=== PATIENT | female | born 1980 | race Caucasian/White ===

== ENCOUNTER 2016-09-01 04:40 | Emergency (ER) | payer BC ==
--- NOTE | 2016-09-01 05:17 | EDM.PDOC ---
<Miguelito Bernal - Last Filed: 09/01/16 06:37> ED HPI GENERAL MEDICAL PROBLEM - General Chief Complaint: Abdominal Pain Stated Complaint: LOWER RIGHT ABDOMINAL PAIN Time Seen by Provider: 09/01/16 05:08 Source of Information: Reports: Patient, RN - History of Present Illness INITIAL COMMENTS - FREE TEXT/NARRATIVE: she presents with about a 24 hour history of RLQ pain. She thinks that it feels similar to when she had diverticulitis. Nausea no vomiting no fever no BM changes no bleeding RLQ Pain Score (Numeric/FACES): 8 Past Medical History Cardiovascular History: Denies: Afib, Aneurysm, Angina, CAD, Cardiomyopathy, Heart Failure, Hypertension, [place] Respiratory History: Denies: COPD Gastrointestinal History: Denies: Cirrhosis Neurological History: Denies: CVA Endocrine/Metabolic History: Denies: Diabetes, Type I, Diabetes, Type II - Past Surgical History GI Surgical History: Reports: Appendectomy, Other (See Below) (bariatric surgery ) Female Surgical History: Reports: Oophorectomy (right oophorectomy) Social & Family History - Tobacco Use Tobacco Use Comment: non smoker - Alcohol Use Alcohol Use Comment: denies alcohol use ED ROS GENERAL - Review of Systems Review Of Systems: See Below Constitutional: Denies: Fever, Chills Respiratory: Denies: Shortness of Breath, Cough, Sputum Cardiovascular: Denies: Chest Pain GI/Abdominal: Reports: Abdominal Pain, Nausea. Denies: Bloody Stool, Difficulty Swallowing, Hematemesis, Hematochezia, Vomiting : Denies: Dysuria Neurological: Denies: Confusion ED EXAM, GI/ABD - Physical Exam Exam: See Below General Appearance: Alert. No: Mild Distress Throat/Mouth: Normal Lips Neck: Supple Respiratory/Chest: No Respiratory Distress GI/Abdominal Exam: Soft, Other (mild right lower quadrant tenderness; no rebound tenderness; normal to increased bowel sounds) Course - Vital Signs Last Recorded V/S: Last Vital Signs Temp 36.6 C 09/01/16 06:52 Pulse 68 09/01/16 06:52 Resp 18 09/01/16 06:52 BP 119/60 09/01/16 06:52 Pulse Ox 98 09/01/16 06:52 - Orders/Labs/Meds Orders: Active Orders 24 hr Category Date Time Status Abdomen Pelvis w wo Cont [CT] Stat Exams 09/01/16 06:56 Taken Nalbuphine [Nubain] Med 09/01/16 06:39 Active 10 mg IVPUSH Q2H PRN Ondansetron [Zofran] Med 09/01/16 06:39 Active 4 mg IVPUSH Q4H PRN Medication Orders Nalbuphine HCl (Nubain) 10 mg IVPUSH Q2H PRN PRN Reason: Pain Last Admin: 09/01/16 06:55 Dose: 10 mg Ondansetron HCl (Zofran) 4 mg IVPUSH Q4H PRN PRN Reason: Nausea Last Admin: 09/01/16 06:53 Dose: 4 mg Labs: Laboratory Tests 09/01/16 09/01/16 09/01/16 Range/Units 05:05 05:05 05:26 WBC 9.49 (4.0-11.0) K/uL RBC 4.24 L (4.30-5.90) M/uL Hgb 9.1 L (12.0-16.0) g/dL Hct 30.1 L (36.0-46.0) % MCV 71.0 L (80.0-98.0) fL MCH 21.5 L (27.0-32.0) pg MCHC 30.2 L (31.0-37.0) g/dL RDW Std Deviation 48.3 (28.0-62.0) fl RDW Coeff of Silverio 19 H (11.0-15.0) % Plt Count 403 H (150-400) K/uL MPV 9.80 (7.40-12.00) fL Neut % (Auto) 63.6 (48.0-80.0) % Lymph % (Auto) 28.2 (16.0-40.0) % [place] % (Auto) 7.3 (0.0-15.0) % Eos % (Auto) 0.7 (0.0-7.0) % Baso % (Auto) 0.2 (0.0-1.5) % Neut # (Auto) 6.0 H (1.4-5.7) K/uL Lymph # (Auto) 2.7 H (0.6-2.4) K/uL [place] # (Auto) 0.7 (0.0-0.8) K/uL Eos # (Auto) 0.1 (0.0-0.7) K/uL Baso # (Auto) 0.0 (0.0-0.1) K/uL Nucleated RBC % 0.0 /100WBC Nucleated RBCs # 0 K/uL Sodium (136-146) mmol/L Potassium (3.5-5.1) mmol/L Chloride (98-110) mmol/L Carbon Dioxide (21-31) mmol/L BUN (6.0-23.0) mg/dL Creatinine (0.6-1.5) mg/dL Est Cr Clr Drug Dosing mL/min Estimated GFR (MDRD) ml/min Glucose (60-110) mg/dL Calcium (8.8-10.8) mg/dL Total Bilirubin (0.1-1.5) mg/dL AST (5-40) IU/L ALT (8-54) IU/L Alkaline Phosphatase (40-150) Total Protein (6.0-8.0) g/dL Albumin (3.5-5.0) g/dL Globulin (2.0-3.5) g/dL Albumin/Globulin Ratio (1.3-2.8) Urine Color YELLOW Urine Appearance CLEAR Urine pH 7.0 (5.0-8.0) Ur Specific [employer] 1.025 (1.001-1.035) Urine Protein NEGATIVE (NEGATIVE) mg/dL Urine Glucose (UA) NEGATIVE (NEGATIVE) mg/dL Urine Ketones >=80 (NEGATIVE) mg/dL Urine Occult Blood NEGATIVE (NEGATIVE) Urine Nitrite NEGATIVE (NEGATIVE) Urine Bilirubin NEGATIVE (NEGATIVE) Urine Urobilinogen 0.2 (<2.0) EU/dL Ur Leukocyte Esterase NEGATIVE (NEGATIVE) Urine RBC 0-1 (0-2/HPF) Urine WBC 0-3 (0-5/HPF) Ur Epithelial Cells RARE (NONE-FEW) Urine Bacteria RARE (NEGATIVE) Urine HCG, Qual NEGATIVE (NEGATIVE) 09/01/16 Range/Units 05:26 WBC (4.0-11.0) K/uL RBC (4.30-5.90) M/uL Hgb (12.0-16.0) g/dL Hct (36.0-46.0) % MCV (80.0-98.0) fL MCH (27.0-32.0) pg MCHC (31.0-37.0) g/dL RDW Std Deviation (28.0-62.0) fl RDW Coeff of Silverio (11.0-15.0) % Plt Count (150-400) K/uL MPV (7.40-12.00) fL Neut % (Auto) (48.0-80.0) % Lymph % (Auto) (16.0-40.0) % [place] % (Auto) (0.0-15.0) % Eos % (Auto) (0.0-7.0) % Baso % (Auto) (0.0-1.5) % Neut # (Auto) (1.4-5.7) K/uL Lymph # (Auto) (0.6-2.4) K/uL [place] # (Auto) (0.0-0.8) K/uL Eos # (Auto) (0.0-0.7) K/uL Baso # (Auto) (0.0-0.1) K/uL Nucleated RBC % /100WBC Nucleated RBCs # K/uL Sodium 141 (136-146) mmol/L Potassium 3.9 (3.5-5.1) mmol/L Chloride 108 (98-110) mmol/L Carbon Dioxide 25 (21-31) mmol/L BUN 12 (6.0-23.0) mg/dL Creatinine 0.7 (0.6-1.5) mg/dL Est Cr Clr Drug Dosing 91.91 mL/min Estimated GFR (MDRD) > 60.0 ml/min Glucose 94 (60-110) mg/dL Calcium 9.1 (8.8-10.8) mg/dL Total Bilirubin 0.5 (0.1-1.5) mg/dL AST 17 (5-40) IU/L ALT 11 (8-54) IU/L Alkaline Phosphatase 64 (40-150) Total Protein 7.9 (6.0-8.0) g/dL Albumin 3.9 (3.5-5.0) g/dL Globulin 4.0 H (2.0-3.5) g/dL Albumin/Globulin Ratio 1.0 L (1.3-2.8) Urine Color Urine Appearance Urine pH (5.0-8.0) Ur Specific [employer] (1.001-1.035) Urine Protein (NEGATIVE) mg/dL Urine Glucose (UA) (NEGATIVE) mg/dL Urine Ketones (NEGATIVE) mg/dL Urine Occult Blood (NEGATIVE) Urine Nitrite (NEGATIVE) Urine Bilirubin (NEGATIVE) Urine Urobilinogen (<2.0) EU/dL Ur Leukocyte Esterase (NEGATIVE) Urine RBC (0-2/HPF) Urine WBC (0-5/HPF) Ur Epithelial Cells (NONE-FEW) Urine Bacteria (NEGATIVE) Urine HCG, Qual (NEGATIVE) Meds: Medications Generic Name Dose Route Start Last Admin Trade Name Freq PRN Reason Stop Dose Admin Nalbuphine HCl 10 mg 09/01/16 06:39 09/01/16 06:55 Nubain IVPUSH 10 mg Q2H PRN Administration Pain Ondansetron HCl 4 mg 09/01/16 06:39 09/01/16 06:53 Zofran IVPUSH 4 mg Q4H PRN Administration Nausea Discontinued Medications Generic Name Dose Route Start Last Admin Trade Name Freq PRN Reason Stop Dose Admin Iopamidol 100 ml 09/01/16 07:29 09/01/16 07:29 Isovue Multipack-370 (76%) IVPUSH 09/01/16 07:30 100 ml ONETIME STA Administration - Re-Assessments/Exams Free Text/Narrative Re-Assessment/Exam: 09/01/16 06:37 I discussed laboratory findings with her. She is insistent on CT scanning as she is worried about something more serious. We discussed the radiation exposure and I will order CT abdomen and pelvis. Departure - Departure Disposition: Home, Self-Care 01 Clinical Impression: Left ovarian cyst Uterine fibroid Qualifiers: Uterine leiomyoma location: unspecified location Qualified Code(s): D25.9 - Leiomyoma of uterus, unspecified - Discharge Information Forms: ED Department Discharge Additional Instructions: The following information is given to patients seen in the emergency department who are being discharged to home. This information is to outline your options for follow-up care. We provide all patients seen in our emergency department with a follow-up referral. The need for follow-up, as well as the timing and circumstances, are variable depending upon the specifics of your emergency department visit. If you don't have a primary care physician on staff, we will provide you with a referral. We always advise you to contact your personal physician following an emergency department visit to inform them of the circumstance of the visit and for follow-up with them and/or the need for any referrals to a consulting specialist. The emergency department will also refer you to a specialist when appropriate. This referral assures that you have the opportunity for follow-up care with a specialist. All of these measure are taken in an effort to provide you with optimal care, which includes your follow-up. Under all circumstances we always encourage you to contact your private physician who remains a resource for coordinating your care. When calling for follow-up care, please make the office aware that this follow-up is from your recent emergency room visit. If for any reason you are refused follow-up, please contact the [facility] Emergency Department at and asked to speak to the emergency department charge nurse. Follow-up women's health clinic [facility] Primary Care - Women's Health [address] [place] [address] <Sil Cordero - Last Filed: 09/01/16 08:28> ED HPI GENERAL MEDICAL PROBLEM - History of Present Illness INITIAL COMMENTS - FREE TEXT/NARRATIVE: patient was signed out to me by Dr. BERNAL presenting with right lower quadrant pain. She has had bariatric surgery and a right oophorectomy. She has a known history of a left ovarian cyst that is 4.5 cm and a uterine fibroid. There are no signs of diverticulitis, bowel obstruction or colitis on CT of her abdomen. Being discharged stable with instructions to follow up with [facility]. Departure - Departure Time of Disposition: 08:26 Condition: Good
[2016-09-01 06:02] LABS: CHLORIDE,CL 108 mmol/L (98-110); SODIUM,NA 141 mmol/L (136-146)
[2016-09-01] MEDS ORDERED: Nalbuphine 10 MG/1 ML Vial IVPUSH PRN (06:39)
[2016-09-01] MEDS ORDERED: Ondansetron 4 MG/2 ML SDV IVPUSH PRN (06:39)
[2016-09-01 06:53] VITALS: BP 119/60
[2016-09-01] MEDS ORDERED: Iopamidol 755 MG/ML 500 ML Multipack Bottle IVPUSH STA (07:29)
--- NOTE | 2016-09-01 11:57 | CT ---
EXAM DATE: 09/01/16 PATIENT'S AGE: 35 Patient: CAREN DILLARD Facility: [place], [place] Site . Site : 1980 Study: CT Abdomen/Pelvis [id number]/19/2017 7:32:47 AM Ordering Physician: Antonella Farley Final Report: INDICATION: 35 year-old female. Right lower quadrant abdominal pain. Right oophorectomy. Previous cholecystectomy and appendectomy. TECHNIQUE: Noncontrast/contrast-enhanced CT of the abdomen and pelvis. 100 cc nonionic Isovue-370 administered without complication. Comparison : None. FINDINGS: Pre contrast CT demonstrates clear lung bases. The unenhanced liver, spleen, pancreas, and both adrenal glands are normal. Surgically absent gallbladder. Postsurgical change in the region of the stomach. 2 mm nonobstructing stone upper central left kidney. Normal caliber abdominal aorta and iliac arteries without vascular calcification. Surgically absent appendix and right ovary. The left ovary is enlarged likely secondary to a cyst which measures up to 4.5 x 2.8 cm on image 110 series 301. Additionally there is a mass occupying the uterine fundus and body likely a fibroid. It measures approximately 7.8 x 7.4 cm. Consider pelvic ultrasound for further characterization. No ascites or lymphadenopathy. No bowel obstruction or ileus. The included skeleton is negative for fractures. IMPRESSION: 1. Large uterine mass likely a fibroid. 2. 4.5 cm left ovarian cyst. 3. Nonobstructing 2 mm stone upper mid left kidney. 4. Surgical changes related to appendectomy, cholecystectomy, right oophorectomy , and postsurgical change in the region of the stomach. 5. No acute inflammatory process identified within the abdomen or pelvis. Dictated by James Tong MD @ 09/01/2016 8:17:08 AM Dictated by: James Tong MD @ 09/01/2016 08:18:08 (Electronic Signature) Report Signed by Proxy. JL
== END 2016-09-01 08:37 | disposition home or self-care (01) ==
LOC: MW.ED 04:40
DX: N83.202 Unspecified ovarian cyst, left side (principal); D25.9 Leiomyoma of uterus, unspecified; Z90.49 Acquired absence of other specified parts of digestive tract; Z98.84 Bariatric surgery status; Z90.721 Acquired absence of ovaries, unilateral
CPT/HCPCS: 36415; 74178; 80053; 81001; 81025; 85025; 96374; 96375; 99284; J2300; J2405; Q9967

== ENCOUNTER 2018-05-24 06:59 | Emergency (ER) | payer BC ==
--- NOTE | 2018-05-24 07:15 | EDM.PDOC ---
ED HPI GENERAL MEDICAL PROBLEM - General Chief Complaint: General Stated Complaint: POSSIBLE INFECTION Time Seen by Provider: 05/24/18 07:02 Source of Information: Reports: Patient History Limitations: Reports: No Limitations - History of Present Illness INITIAL COMMENTS - FREE TEXT/NARRATIVE: History of present illness: []Patient hasn't been feeling right with vaginal discharge for 2 weeks and this morning she passed a tampon into the toilet. Her last menstrual period was 2 weeks ago. Patient states she has an appointment tomorrow with her primary doctor. He has not taken any meds this morning and she is afebrile. Denies any nausea and vomiting or abdominal pain at this time. Review of systems: As per history of present illness and below otherwise all systems reviewed and negative. Past medical history: As per history of present illness and as reviewed below otherwise noncontributory. Surgical history: As per history of present illness and as reviewed below otherwise noncontributory. Social history: No reported history of drug or alcohol abuse. Family history: As per history of present illness and as reviewed below otherwise noncontributory. Physical exam: General: Well developed, well nourished in NAD HEENT: Atraumatic, normocephalic, pupils reactive, negative for conjunctival pallor or scleral icterus, mucous membranes moist, throat clear, neck supple, nontender, trachea midline. Lungs: Clear to auscultation, breath sounds equal bilaterally, chest nontender. Heart: S1S2, regular, negative for clicks, rubs, or JVD. Abdomen: NABS, Soft, nondistended, nontender, no rebound or guarding. Negative for masses or hepatosplenomegaly. Negative for costovertebral tenderness. Pelvis: Stable nontender. Genitourinary: Deferred. Rectal: Deferred. Extremities: Atraumatic, negative for cords or calf pain. Neurovascular unremarkable. Neuro: Awake, alert, oriented. Cranial nerves II through XII unremarkable. Cerebellum unremarkable. Motor and sensory unremarkable throughout. Exam nonfocal. Skin:warm and dry Diagnostics: None Therapeutics: None ED Course: Stable Impression: Retained tampon Prescriptions: None Plan: Follow-up with primary care as scheduled return if symptoms worsen or change. Definitive disposition and diagnosis as appropriate pending reevaluation and review of above. 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: None Musculoskeletal History: Reports: Other (See Below) Other Musculoskeletal History: fracture finger & toe Psychiatric History: Reports: ADD Hematologic History: Reports: None Immunologic History: Reports: None Oncologic (Cancer) History: Reports: None Dermatologic History: Reports: None - Infectious Disease History Infectious Disease History: Reports: None - Past Surgical History GI Surgical History: Reports: Appendectomy, Other (See Below) (bariatric surgery ) Female Surgical History: Reports: Oophorectomy (right oophorectomy) Social & Family History - Family History Family Medical History: Noncontributory - Caffeine Use Caffeine Use: Reports: Coffee ED ROS GENERAL - Review of Systems Review Of Systems: ROS reveals no pertinent complaints other than HPI. ED EXAM, GENERAL - Physical Exam Exam: See Below (See history of present illness) Course - Vital Signs Last Recorded V/S: Last Vital Signs Temp 96.8 F 05/24/18 07:14 Pulse 95 05/24/18 07:14 Resp 18 05/24/18 07:14 BP 136/86 05/24/18 07:14 Pulse Ox 96 05/24/18 07:14 Departure - Departure Time of Disposition: 07:32 Disposition: Home, Self-Care 01 Condition: Good Clinical Impression: Encounter for medical screening examination - Discharge Information *PRESCRIPTION DRUG MONITORING PROGRAM REVIEWED*: No *COPY OF PRESCRIPTION DRUG MONITORING REPORT IN PATIENT COLBY: No Referrals: PCP,None [Primary Care Provider] - Forms: ED Department Discharge Additional Instructions: The following information is given to patients seen in the emergency department who are being discharged to home. This information is to outline your options for follow-up care. We provide all patients seen in our emergency department with a follow-up referral. The need for follow-up, as well as the timing and circumstances, are variable depending upon the specifics of your emergency department visit. If you don't have a primary care physician on staff, we will provide you with a referral. We always advise you to contact your personal physician following an emergency department visit to inform them of the circumstance of the visit and for follow-up with them and/or the need for any referrals to a consulting specialist. The emergency department will also refer you to a specialist when appropriate. This referral assures that you have the opportunity for follow-up care with a specialist. All of these measure are taken in an effort to provide you with optimal care, which includes your follow-up. Under all circumstances we always encourage you to contact your private physician who remains a resource for coordinating your care. When calling for follow-up care, please make the office aware that this follow-up is from your recent emergency room visit. If for any reason you are refused follow-up, please contact the [facility] Emergency Department at and asked to speak to the emergency department charge nurse. [facility] Primary [facility] - Women's Health [address] [place] [id number]
[2018-05-24 07:56] VITALS: BP 118/79
== END 2018-05-24 07:52 | disposition home or self-care (01) ==
LOC: MW.ED 06:59
DX: Z13.89 Encounter for screening for other disorder (principal)
CPT/HCPCS: 99283

== ENCOUNTER 2019-03-12 06:46 | Inpatient (IN) | payer BC ==
[2019-03-12] MEDS ORDERED: Dexamethasone 4 MG/ML 5 ML MDV ONE (07:20)
[2019-03-12] MEDS ORDERED: Propofol 200 MG/20 ML SDV ONE (07:20)
[2019-03-12] MEDS ORDERED: Lidocaine 2% 5 ML SDV ONE (07:20)
[2019-03-12] MEDS ORDERED: Ondansetron 4 MG/2 ML SDV ONE (07:20)
[2019-03-12] MEDS ORDERED: fentaNYL 100 MCG/2 ML SDV ONE (07:20)
[2019-03-12] MEDS ORDERED: Midazolam 1 MG/ML 2 ML SDV ONE (07:20)
[2019-03-12] MEDS ORDERED: Rocuronium 100 MG/10 ML Syringe ONE (07:20)
[2019-03-12] MEDS ORDERED: Octyl 2-Cyanoacrylate 1 Tube ONE (07:23)
[2019-03-12] MEDS ORDERED: Fluorescein 5 ML Vial ONE (07:26)
[2019-03-12 07:41] LABS: BLOOD UREA NITROGEN,BUN 15 mg/dL (7.0-18.0); CARBON DIOXIDE,CO2 27.2 mmol/L (21.0-32.0); CHLORIDE,CL 107 mmol/L (98-107); GLUCOSE RANDOM 99 mg/dL (74-106); POTASSIUM,K 3.8 mmol/L (3.5-5.1); SODIUM,NA 143 mmol/L (136-145)
[2019-03-12] MEDS ORDERED: Scopolamine 1.5 MG Transdermal Patch TRDERM PRN (07:43)
--- NOTE | 2019-03-12 07:43 | PCM.PREANE ---
Preanesthetic Assessment - Anesthesia/Transfusion/Family Hx Anesthesia History: Prior Anesthesia Without Reaction Family History of Anesthesia Reaction: No Transfusion History: No Prior Transfusion(s) - Review of Systems General: No Symptoms Pulmonary: No Symptoms Cardiovascular: No Symptoms Gastrointestinal: No Symptoms Neurological: No Symptoms Other: Reports: None - Physical Assessment Vital Signs: Last Vital Signs Temp 96.4 F 03/12/19 07:05 Pulse 85 03/12/19 07:05 Resp 16 03/12/19 07:05 BP 143/85 H 03/12/19 07:05 Pulse Ox 99 03/12/19 07:05 Height: 5 ft 3 in Weight: 104.326 kg ASA Class: 2 Mental Status: Alert & Oriented x3 Airway Class: Mallampati = 1 Dentition: Reports: Normal Dentition ROM/Head Extension: Full Lungs: Clear to Auscultation, Normal Respiratory Effort Cardiovascular: Regular Rate, Regular Rhythm - Lab Values: Laboratory Last Values WBC 8.58 K/uL (4.0-11.0) 03/12/19 07:12 RBC 3.54 M/uL (4.30-5.90) L 03/12/19 07:12 Hgb 9.5 g/dL (12.0-16.0) L 03/12/19 07:12 Hct 30.5 % (36.0-46.0) L 03/12/19 07:12 MCV 86.2 fL (80.0-98.0) 03/12/19 07:12 MCH 26.8 pg (27.0-32.0) L 03/12/19 07:12 MCHC 31.1 g/dL (31.0-37.0) 03/12/19 07:12 RDW Std Deviation 70.2 fl (28.0-62.0) H 03/12/19 07:12 RDW Coeff of Silverio 23 % (11.0-15.0) H 03/12/19 07:12 Plt Count 459 K/uL (150-400) H 03/12/19 07:12 MPV 9.10 fL (7.40-12.00) 03/12/19 07:12 Nucleated RBC % 0.0 /100WBC 03/12/19 07:12 Nucleated RBCs # 0 K/uL 03/12/19 07:12 - Allergies Allergies/Adverse Reactions: Allergies Allergy/AdvReac Type Severity Reaction Status Date / Time amoxicillin Allergy Other Verified 03/07/19 12:48 - Blood Blood Available: No - Anesthesia Plan Pre-Op Medication Ordered: None - Acknowledgements Anesthesia Type Planned: General Anesthesia Pt an Appropriate Candidate for the Planned Anesthesia: Yes Alternatives and Risks of Anesthesia Discussed w Pt/Guardian: Yes Pt/Guardian Understands and Agrees with Anesthesia Plan: Yes Additional Comments: PMH: MO, ADHD, using topamax for weight loss PLAN: tiva PreAnesthesia Questionnaire HEENT History: Reports: Other (See Below) Other HEENT History: wears a plastic retainer at night Respiratory History: Reports: Sleep Apnea Other Respiratory History: hx of sleep apnea, used a CPAP until weight reduction surgery Gastrointestinal History: Reports: Cholelithiasis, GERD Genitourinary History: Reports: None PLANT ETIOLOGIST History: Reports: None Musculoskeletal History: Reports: Fracture Other Musculoskeletal History: hx of fx left ring finger Psychiatric History: Reports: ADHD Endocrine/Metabolic History: Reports: Obesity/BMI 30+ Hematologic History: Reports: Anemia Other Hematologic History: Iron deficiency anemia- has iron infusions Immunologic History: Reports: None Oncologic (Cancer) History: Reports: None Dermatologic History: Reports: None - Infectious Disease History Infectious Disease History: Reports: None - Past Surgical History Head Surgeries/Procedures: Reports: None HEENT Surgical History: Reports: Oral Surgery, Tonsillectomy Other HEENT Surgeries/Procedures: 1 wisdom tooth removed GI Surgical History: Reports: Appendectomy, Bariatric Procedure, Cholecystectomy Other GI Surgeries/Procedures: hx of gastric sleeve Female Surgical History: Reports: LEEP, Salpingo-Oophorectomy - SUBSTANCE USE Smoking Status *Q: Former Smoker Tobacco Use Within Last Twelve Months: Cigarettes Recreational Drug Use History: No - HOME MEDS Home Medications: Home Meds Amphetamine/Dextroamphetamine [Adderall XR] 30 mg PO QAM 05/24/18 [History] Pantoprazole Sodium [Protonix] 40 mg PO QAM 05/24/18 [History] Topiramate [Topamax] 50 mg PO QAM 03/07/19 [History] Zolpidem Tartrate [Ambien] 5 mg PO BEDTIME PRN 03/07/19 [History] - CURRENT (IN HOUSE) MEDS Current Meds: Current Medications Lactated Ringer's (Ringers, Lactated) 1,000 mls @ 100 mls/hr IV ASDIRECTED AARON Discontinued Medications Dexamethasone (Dexamethasone) Confirm Administered Dose 20 mg .ROUTE .STK-MED ONE Stop: 03/12/19 07:21 Fentanyl (Sublimaze) Confirm Administered Dose 100 mcg .ROUTE .STK-MED ONE Stop: 03/12/19 07:21 Fluorescein Sodium (Ak-Fluor) Confirm Administered Dose 5 ml .ROUTE .STK-MED ONE Stop: 03/12/19 07:27 Acetaminophen (Ofirmev) Confirm Administered Dose 100 mls @ as directed .ROUTE .STK-MED ONE Stop: 03/12/19 07:24 Lidocaine (Xylocaine-Mpf 2%) Confirm Administered Dose 5 ml .ROUTE .STK-MED ONE Stop: 03/12/19 07:21 Midazolam HCl (Versed 1 Mg/Ml) Confirm Administered Dose 2 mg .ROUTE .STK-MED ONE Stop: 03/12/19 07:21 Octyl Cyanoacrylate (Dermabond Advance) Confirm Administered Dose 1 applic .ROUTE .STK-MED ONE Stop: 03/12/19 07:24 Ondansetron HCl (Zofran) Confirm Administered Dose 4 mg .ROUTE .STK-MED ONE Stop: 03/12/19 07:21 Propofol (Diprivan 20 Ml) Confirm Administered Dose 200 mg .ROUTE .STK-MED ONE Stop: 03/12/19 07:21 Rocuronium [place] (Zemuron) Confirm Administered Dose 100 mg .ROUTE .STK-MED ONE Stop: 03/12/19 07:21 Succinylcholine Chloride (Succinylcholine Chloride) Confirm Administered Dose 200 mg .ROUTE .STK-MED ONE Stop: 03/12/19 07:21
[2019-03-12] MEDS ORDERED: Scopolamine 1.5 MG Transdermal Patch ONE (07:44)
[2019-03-12] MEDS ORDERED: ceFAZolin/Dextrose,Iso-Osmotic 2 GM/50 ML Duplex Bag IV ONE (07:53)
[2019-03-12] MEDS: Lactated Ringers 1,000 ML IV SCH ×2 (07:53→14:27)
[2019-03-12] MEDS ORDERED: HYDROmorphone 2 MG/ML Syringe ONE (08:18)
[2019-03-12] MEDS ORDERED: Methylene Blue 50 MG/10 ML Ampule ONE ×2 (09:32→10:02)
[2019-03-12] MEDS ORDERED: Naloxone 0.4 MG/ML Syringe IVPUSH PRN ×2 (10:08→11:28)
[2019-03-12] MEDS ORDERED: 50% Dextrose in Water 50 ML Syringe IVPUSH PRN (10:08)
[2019-03-12] MEDS ORDERED: Atropine 0.1 MG/ML 10 ML Syringe IVPUSH PRN ×2 (10:08)
[2019-03-12] MEDS ORDERED: EPINEPHrine 1:10,000 1 MG/10 ML Syringe IVPUSH PRN (10:08)
[2019-03-12] MEDS ORDERED: Glycopyrrolate 0.2 MG/ML SDV ONE (10:35)
[2019-03-12] MEDS ORDERED: Neostigmine Methylsulfate 1 MG/ML 5 ML Syringe ONE (10:35)
[2019-03-12] MEDS ORDERED: Bupivacaine 0.5% 30 ML SDV ONE (10:36)
[2019-03-12] MEDS ORDERED: Ketorolac 30 MG/ML SDV ONE (10:37)
[2019-03-12] MEDS ORDERED: Furosemide 40 MG/4 ML VIAL ONE (10:50)
[2019-03-12] MEDS ORDERED: Promethazine 25 MG/ML SDV IM PRN (11:21)
[2019-03-12] MEDS ORDERED: Ondansetron 4 MG/2 ML SDV IVPUSH PRN (11:21)
[2019-03-12] MEDS ORDERED: Ketorolac 30 MG/ML SDV IVPUSH ONE (11:21)
[2019-03-12] MEDS ORDERED: HYDROmorphone/Normal Saline 6 MG/30 ML PCA Vial IV PRN (11:28)
[2019-03-12] MEDS ORDERED: diphenhydrAMINE 25 MG Cap PO PRN (11:28)
[2019-03-12] MEDS ORDERED: diphenhydrAMINE 50 MG/ML SDV IVPUSH PRN (11:28)
[2019-03-12] MEDS: HYDROmorphone 2 MG/ML Syringe IVPUSH PRN ×2 (11:29→11:37)
[2019-03-12] MEDS ORDERED: Acetaminophen 325 MG Tab PO SCH (11:30)
--- NOTE | 2019-03-12 11:34 | PCM.OPNOTE ---
- General Post-Op/Procedure Note Date of Surgery/Procedure: 03/12/19 Operative Procedure(s): Total abdominal hysterectomy, left salpingectomy, cystourethroscopy Findings: Enlarged 20-week size uterus, absent right ovary and tube, normal-appearing left ovary and tube Normal bladder with bilateral ureteral efflux Pre Op Diagnosis: 38yo G0 with leiomyoma of uterus. Heavy menstruation. Dysmenorrhea Post-Op Diagnosis: 38yo G0 with leiomyoma of uterus. Heavy menstruation. Dysmenorrhea Anesthesia Technique: General ET Tube Primary Surgeon: Maeve Katz Anesthesia Provider: Jeannie Mclaughlin Orthopedic Tech: Sobeida Cleveland Pathology: Uterus, cervix, left fallopian tube Fluid Replacement, Intraop: 2,100 Output, Urine Amount: 500 EBL in mLs: 700 Drain/Tube Comments:: GOOD wound vac Complications: None Condition: Good
[2019-03-12] MEDS ORDERED: HYDROmorphone 2 MG/ML Syringe IVPUSH ONE (11:38)
--- NOTE | 2019-03-12 11:42 | PCM.POSTAN ---
POST ANESTHESIA ASSESSMENT - MENTAL STATUS Mental Status: Alert, Oriented - VITAL SIGNS Vital Signs: Last Vital Signs Temp 97.5 F 03/12/19 11:13 Pulse 81 03/12/19 11:23 Resp 16 03/12/19 11:23 BP 147/80 H 03/12/19 11:23 Pulse Ox 100 03/12/19 11:23 - RESPIRATORY Respiratory Status: Respiratory Rate WNL, Airway Patent, O2 Saturation Stable - CARDIOVASCULAR CV Status: Pulse Rate WNL, Blood Pressure Stable - GASTROINTESTINAL GI Status: No Symptoms - POST OP HYDRATION Hydration Status: Adequate & Stable
[2019-03-12] MEDS ORDERED: HYDROmorphone 2 MG/ML Syringe IVPUSH PRN (12:07)
--- NOTE | 2019-03-12 16:32 | OR ---
SURGEON: Maeve Katz MD DATE OF PROCEDURE: 03/12/2019 PREOPERATIVE DIAGNOSES: 1. A 38-year-old G0 with uterine leiomyoma. 2. Heavy menstruation. 3. Dysmenorrhea. POSTOPERATIVE DIAGNOSES: 1. A 38-year-old G0 with uterine leiomyoma. 2. Heavy menstruation. 3. Dysmenorrhea. PROCEDURE: Total abdominal hysterectomy, left salpingectomy, and cystoscopy. PRIMARY SURGEON: Maeve Katz MD PRESCHOOL TEACHER ASSISTANT: Dr. Sobeida Cleveland. ANESTHESIA: General endotracheal provided by Dr. Mclaughlin. COMPLICATIONS: None. ESTIMATED BLOOD LOSS: 700 mL. FLUIDS: 2100 mL LR. URINE OUTPUT: 500 mL. SPECIMEN: Uterus, cervix, and left fallopian tube. FINDINGS: A 20-week size uterus. Normal-appearing left ovary and tube. Absent right ovary and tube consistent with surgical history. Normal bladder with bilateral ureteral efflux. PROCEDURE IN DETAIL: The risks, benefits, indications, and alternatives of the procedure were reviewed with the patient and informed consent was obtained. The patient was taken to the operating room with IV fluids running. The patient was placed in the dorsal lithotomy position with legs in Yellofin stirrups. General anesthesia was obtained. A Hanson catheter was placed and she was prepared and draped in the usual sterile fashion. A 12 cm infraumbilical vertical skin incision was made with the scalpel and carried through to the underlying rectus fascia with the Bovie. The fascia was incised in the midline with the Bovie, and the incision was extended superiorly and inferiorly using elevation with a hemostat to ensure that the underlying bowel was not injured. The fascia was from the rectus muscles with a combination of blunt dissection and sharp dissection with the Metzenbaum scissors. The peritoneum was grasped with 2 hemostats, elevated, and entered sharply with Metzenbaum scissors. A large Dane retractor was placed and the bowel packed away with moist laparotomy sponges. The pelvis was examined with the above findings noted. The LigaSure was used to clamp, coagulate, and transect the left fallopian tube from the mesosalpinx and ovary. A large Margaret clamp was placed on the left cornu and used for retraction. The left round ligament was clamped, transected, and suture ligated with 2-0 Vicryl. The anterior leaf of the broad ligament was incised along the bladder reflection to the midline using Metzenbaum scissors. The posterior leaf of the broad ligament was incised with Metzenbaum scissors to skeletonize the uterine vessels. The left uterine vessels were clamped with the LigaSure and coagulated. Forest clamps were then placed and the uterine arteries were transected and suture ligated with 2-0 Vicryl suture. Hemostasis was noted. In a similar fashion, the right round ligament was clamped, transected, and suture ligated with 2-0 Vicryl. The anterior leaf of the broad ligament was incised along the bladder reflection to the midline. The bladder was then gently dissected off the lower uterine segment and the cervix using the Metzenbaum scissors. The right uterine artery was skeletonized and clamped and coagulated with the LigaSure device. The uterine arteries were then clamped with Jes clamp, transected, transected, and suture ligated with 2-0 Vicryl sutures. The bladder was backfilled with 100 mL of sterile saline mixed with methylene blue and no efflux of dye was noted into the pelvis. The bilateral cardinal ligaments were sequentially clamped with Forest clamps, transected, and suture ligated with 2-0 Vicryl until the distal end of the cervix was reached. The cervix and uterus were amputated with the Bovie. At this time, methylene blue was noted to be welling up from the vagina. This was suctioned and additional sterile saline with methylene blue was backfilled into the bladder. No leakage was noted at the edges of the vaginal cuff or bladder, however, was again seen pooling in the vagina. At this time, it was felt that the Hanson catheter was leaking and that the bladder was intact. The vaginal cuff was closed with a running locked stitch of 0 Vicryl suture in a vertical fashion and then was transfixed to the left uterosacral ligament. Hemostasis was noted. The pelvis was irrigated copiously with warmed water, hemostasis was noted. All laparotomy sponges and instruments were removed from the abdomen. The fascia was closed with a running stitch of 0 PDS. Subcutaneous tissue was closed with two layers of 3-0 Vicryl in a running fashion. The skin was closed with 3-0 Monocryl in a subcuticular fashion. The subcutaneous tissue and fascia were infiltrated with 0.5% bupivacaine without epinephrine. A GOOD wound dressing was placed over the incision. Sponge, lap, needle counts were correct. The Hanson catheter was removed from the bladder. A 70-degree cystoscope was introduced through the urethra into the bladder. The ureteral orifices were noted bilaterally to efflux clear urine. A systematic inspection of the bladder was completed and no perforations were noted. The cystoscope was removed from the bladder monitor and the urethra was inspected during the removal of the cystoscope. No perforations were noted as well. The Hanson catheter was replaced. The patient was extubated and taken to recovery room in stable condition. [id number] / MODL /[id number] MTDD
[2019-03-12] MEDS: Ketorolac 30 MG/ML SDV IVPUSH PRN ×2 (17:06→23:14)
[2019-03-12] MEDS: Gabapentin 300 MG Cap PO SCH ×2 (17:06→21:53)
[2019-03-12] MEDS ORDERED: oxyCODONE 5 MG Tab PO PRN (17:21)
--- NOTE | 2019-03-12 17:23 | PCM.SN ---
- Free Text/Narrative Note: Patient sleepy and sore, but doing well. Has tolerated liquids without nausea/ vomiting. Notified by RN of urine output and vital signs. Suspect drowsiness from combination of anesthesia, dilaudid, and benadryl. Continue to monitor. D/C IV Dilaudid, begin prn Oxycodone. Scheduled Toradol x24 hours, gabapentin, tylenol. D/C Hanson in AM.
[2019-03-12] MEDS: Acetaminophen 500 MG Tab PO SCH (18:21)
[2019-03-12] MEDS: Docusate Sodium 100 MG Cap PO SCH (21:53)
[2019-03-13] MEDS: Lactated Ringers 1,000 ML IV SCH (00:28)
[2019-03-13] MEDS: Acetaminophen 500 MG Tab PO SCH ×2 (03:55→08:14)
[2019-03-13] MEDS: Ketorolac 30 MG/ML SDV IVPUSH PRN (05:52)
[2019-03-13 06:12] LABS: BLOOD UREA NITROGEN,BUN 14 mg/dL (7.0-18.0); CHLORIDE,CL 107 mmol/L (98-107); GLUCOSE RANDOM 105 mg/dL (74-106); POTASSIUM,K 3.9 mmol/L (3.5-5.1); SODIUM,NA 143 mmol/L (136-145)
--- NOTE | 2019-03-13 06:59 | PCM.PN ---
- General Info Date of Service: 03/13/19 Admission Dx/Problem (Free Text): Patient able to eat yesterday evening without nausea/vomiting. Ambulated to bathroom and chair without dizziness. Pain controlled on combo of IV Toradol and oral oxycodone. Hanson recently removed, patient has not attempted to void yet. Functional Status: Reports: Tolerating Diet - Review of Systems General: Reports: No Symptoms HEENT: Reports: No Symptoms Pulmonary: Reports: No Symptoms Cardiovascular: Reports: No Symptoms Gastrointestinal: Reports: No Symptoms Genitourinary: Reports: No Symptoms Musculoskeletal: Reports: No Symptoms Skin: Reports: No Symptoms Neurological: Reports: No Symptoms Psychiatric: Reports: No Symptoms - Patient Data Vitals - Most Recent: Last Vital Signs Temp 36.3 C 03/13/19 05:00 Pulse 63 03/13/19 05:00 Resp 18 03/13/19 05:00 BP 102/57 L 03/13/19 05:00 Pulse Ox 96 03/13/19 05:00 Weight - Most Recent: 104.326 kg I&O - Last 24 Hours: Intake & Output 03/12/19 03/12/19 03/13/19 14:59 22:59 06:59 Intake Total 3500 Output Total 2400 650 250 Balance 1100 -650 -250 Lab Results Last 24 Hours: Laboratory Results - last 24 hr 03/12/19 03/12/19 03/12/19 Range/Units 07:12 07:12 07:12 WBC 8.58 (4.0-11.0) K/uL RBC 3.54 L (4.30-5.90) M/uL Hgb 9.5 L (12.0-16.0) g/dL Hct 30.5 L (36.0-46.0) % MCV 86.2 (80.0-98.0) fL MCH 26.8 L (27.0-32.0) pg MCHC 31.1 (31.0-37.0) g/dL RDW Std Deviation 70.2 H (28.0-62.0) fl RDW Coeff of Silverio 23 H (11.0-15.0) % Plt Count 459 H (150-400) K/uL MPV 9.10 (7.40-12.00) fL Neut % (Auto) (48.0-80.0) % Lymph % (Auto) (16.0-40.0) % Highland % (Auto) (0.0-15.0) % Eos % (Auto) (0.0-7.0) % Baso % (Auto) (0.0-1.5) % Neut # (Auto) (1.4-5.7) K/uL Lymph # (Auto) (0.6-2.4) K/uL Highland # (Auto) (0.0-0.8) K/uL Eos # (Auto) (0.0-0.7) K/uL Baso # (Auto) (0.0-0.1) K/uL Nucleated RBC % 0.0 /100WBC Nucleated RBCs # 0 K/uL Sodium 143 (136-145) mmol/L Potassium 3.8 (3.5-5.1) mmol/L Chloride 107 (98-107) mmol/L Carbon Dioxide 27.2 (21.0-32.0) mmol/L BUN 15 (7.0-18.0) mg/dL Creatinine 0.6 (0.6-1.0) mg/dL Est Cr Clr Drug Dosing 104.13 mL/min Estimated GFR (MDRD) > 60.0 ml/min Glucose 99 (74-106) mg/dL Calcium 8.8 (8.5-10.1) mg/dL HCG, Qual NEGATIVE (NEG) Blood Type Antibody Screen 03/12/19 03/13/19 03/13/19 Range/Units 07:12 05:45 05:45 WBC 17.92 H (4.0-11.0) K/uL RBC 2.88 L (4.30-5.90) M/uL Hgb 7.8 L (12.0-16.0) g/dL Hct 25.2 L (36.0-46.0) % MCV 87.5 (80.0-98.0) fL MCH 27.1 (27.0-32.0) pg MCHC 31.0 (31.0-37.0) g/dL RDW Std Deviation 71.8 H (28.0-62.0) fl RDW Coeff of Silverio 23 H (11.0-15.0) % Plt Count 428 H (150-400) K/uL MPV 9.10 (7.40-12.00) fL Neut % (Auto) 83.4 H (48.0-80.0) % Lymph % (Auto) 10.5 L (16.0-40.0) % Highland % (Auto) 6.0 (0.0-15.0) % Eos % (Auto) 0.0 (0.0-7.0) % Baso % (Auto) 0.1 (0.0-1.5) % Neut # (Auto) 15.0 H (1.4-5.7) K/uL Lymph # (Auto) 1.9 (0.6-2.4) K/uL Highland # (Auto) 1.1 H (0.0-0.8) K/uL Eos # (Auto) 0.0 (0.0-0.7) K/uL Baso # (Auto) 0.0 (0.0-0.1) K/uL Nucleated RBC % 0.0 /100WBC Nucleated RBCs # 0 K/uL Sodium 143 (136-145) mmol/L Potassium 3.9 (3.5-5.1) mmol/L Chloride 107 (98-107) mmol/L Carbon Dioxide 29.0 (21.0-32.0) mmol/L BUN 14 (7.0-18.0) mg/dL Creatinine 0.7 (0.6-1.0) mg/dL Est Cr Clr Drug Dosing 89.26 mL/min Estimated GFR (MDRD) > 60.0 ml/min Glucose 105 (74-106) mg/dL Calcium 8.3 L (8.5-10.1) mg/dL HCG, Qual (NEG) Blood Type A POSITIVE Antibody Screen NEGATIVE Med Orders - Current: Current Medications Atropine Sulfate (Atropine 0.1 Mg/Ml) 0.5 mg IVPUSH ASDIRECTED PRN PRN Reason: Hypo-perfusion Atropine Sulfate (Atropine 0.1 Mg/Ml) 1 mg IVPUSH ASDIRECTED PRN PRN Reason: Hypo-Perfusion Dextrose/Water (Dextrose 50% In Water) 50 ml IVPUSH ASDIRECTED PRN PRN Reason: Hypoglycemia Diphenhydramine HCl (Benadryl) 25 mg IVPUSH Q6H PRN PRN Reason: Itching Last Admin: 03/12/19 13:35 Dose: 25 mg Docusate Sodium (Colace) 100 mg PO BID [facility] Last Admin: 03/12/19 21:53 Dose: 100 mg Epinephrine HCl (Epinephrine 1:10,000) 1 mg IVPUSH ASDIRECTED PRN PRN Reason: ACLS Guidelines Gabapentin (Neurontin) 300 mg PO BID [facility] Last Admin: 03/12/19 21:53 Dose: 300 mg Ibuprofen (Motrin) 800 mg PO Q8H [facility] Naloxone HCl (Narcan) 0.1 mg IVPUSH ASDIRECTED PRN PRN Reason: Respiratory Depression Naloxone HCl (Narcan) 0.04 mg IVPUSH Q3M PRN PRN Reason: Respiratory Depression Ondansetron HCl (Zofran) 4 mg IVPUSH Q6H PRN PRN Reason: Nausea/Vomiting Oxycodone/Acetaminophen (Percocet 325-5 Mg) 1 tab PO Q4H PRN PRN Reason: Pain (moderate 4-6) Amphetamine[facility] 30 [facility] Promethazine HCl (Phenergan) 25 mg IM Q6H PRN PRN Reason: Nausea/Vomiting Scopolamine (Transderm-Scop) 1.5 mg TRDERM Q72H PRN PRN Reason: Nausea/Vomiting Last Admin: 03/12/19 07:52 Dose: 1.5 mg Topiramate (Topamax) [facility] Discontinued Medications Acetaminophen (Tylenol) 1,000 mg PO Q6H [facility] Last Admin: 03/12/19 14:39 Dose: Not Given Acetaminophen (Tylenol Extra Strength) 1,000 mg PO Q6H [facility] Last Admin: 03/13/19 03:55 Dose: Not Given Bupivacaine HCl (Marcaine 0.5%) Confirm Administered Dose 30 ml .ROUTE .STK-MED ONE Stop: 03/12/19 10:37 Cefazolin Sodium/Dextrose (Ancef) Confirm Administered Dose 2 gm IV .STK-MED ONE Stop: 03/12/19 07:54 Dexamethasone (Dexamethasone) Confirm Administered Dose 20 mg .ROUTE .STK-MED ONE Stop: 03/12/19 07:21 Diphenhydramine HCl (Benadryl) 25 mg PO Q6H PRN PRN Reason: Itching Fentanyl (Sublimaze) Confirm Administered Dose 100 mcg .ROUTE .STK-MED ONE Stop: 03/12/19 07:21 Fluorescein Sodium (Ak-Fluor) Confirm Administered Dose 5 ml .ROUTE .ST-MED ONE Stop: 03/12/19 07:27 Furosemide (Lasix) Confirm Administered Dose 40 mg .ROUTE .ST-MED ONE Stop: 03/12/19 10:51 Glycopyrrolate (Robinul) Confirm Administered Dose 0.4 mg .ROUTE .ST-MED ONE Stop: 03/12/19 10:36 Hydromorphone HCl (Dilaudid) Confirm Administered Dose 2 mg .ROUTE .ST-MED ONE Stop: 03/12/19 08:19 Hydromorphone HCl (Dilaudid) 0.5 mg IVPUSH .Q5MIN PRN PRN Reason: Pain (severe 7-10) Stop: 03/13/19 10:10 Last Admin: 03/12/19 11:37 Dose: 0.5 mg Hydromorphone HCl (Dilaudid Market Development Analyst 6 Mg In Ns 30 Ml) 6 mg IV ASDIRECTED PRN; Protocol PRN Reason: Abdominal Pain Hydromorphone HCl (Dilaudid) 2 mg IVPUSH ONETIME ONE Stop: 03/12/19 11:39 Last Admin: 03/12/19 11:51 Dose: 2 mg Hydromorphone HCl (Dilaudid) 0.5 mg IVPUSH Q3H PRN PRN Reason: Abdominal Pain Lactated Ringer's (Ringers, Lactated) 1,000 mls @ 100 mls/hr IV ASDIRECTED AARON Stop: 03/13/19 05:00 Last Admin: 03/13/19 00:28 Dose: 100 mls/hr Acetaminophen (Ofirmev) Confirm Administered Dose 100 mls @ as directed .ROUTE .[facility]-MED ONE Stop: 03/12/19 07:24 Cefazolin Sodium/Dextrose (Ancef) Confirm Administered Dose 50 mls @ as directed .ROUTE .[facility]-MED ONE Stop: 03/12/19 08:30 Ketorolac Tromethamine (Toradol) Confirm Administered Dose 30 mg .ROUTE .ST- MED ONE Stop: 03/12/19 10:38 Ketorolac Tromethamine (Toradol) 30 mg IVPUSH ONETIME ONE Stop: 03/12/19 11:22 Last Admin: 03/12/19 14:29 Dose: Not Given Ketorolac Tromethamine (Toradol) 30 mg IVPUSH Q6H PRN PRN Reason: Pain (severe 7-10) Stop: 03/13/19 11:21 Last Admin: 03/13/19 05:52 Dose: 30 mg Lidocaine (Xylocaine-Mpf 2%) Confirm Administered Dose 5 ml .ROUTE .ST-MED ONE Stop: 03/12/19 07:21 Methylene Blue (Provayblue) Confirm Administered Dose 50 mg .ROUTE .ST-MED ONE Stop: 03/12/19 09:33 Methylene Blue (Provayblue) Confirm Administered Dose 50 mg .ROUTE .ST-MED ONE Stop: 03/12/19 10:03 Midazolam HCl (Versed 1 Mg/Ml) Confirm Administered Dose 2 mg .ROUTE .ST-MED ONE Stop: 03/12/19 07:21 Neostigmine Methylsulfate (Neostigmine) Confirm Administered Dose 5 mg .ROUTE .[facility]-MED ONE Stop: 03/12/19 10:36 Octyl Cyanoacrylate (Dermabond Advance) Confirm Administered Dose 1 applic .ROUTE .ST-MED ONE Stop: 03/12/19 07:24 Ondansetron HCl (Zofran) Confirm Administered Dose 4 mg .ROUTE .ST-MED ONE Stop: 03/12/19 07:21 Oxycodone HCl (Oxycodone) 5 mg PO Q4H PRN PRN Reason: Abdominal Pain Last Admin: 03/12/19 20:31 Dose: 5 mg Propofol (Diprivan 20 Ml) Confirm Administered Dose 200 mg .ROUTE .ST-MED ONE Stop: 03/12/19 07:21 Rocuronium [place] (Zemuron) Confirm Administered Dose 100 mg .ROUTE .ST-MED ONE Stop: 03/12/19 07:21 Scopolamine (Transderm-Scop) Confirm Administered Dose 1.5 mg .ROUTE .ST-MED ONE Stop: 03/12/19 07:45 Last Admin: 03/12/19 14:29 Dose: Not Given Succinylcholine Chloride (Succinylcholine Chloride) Confirm Administered Dose 200 mg .ROUTE .ST-MED ONE Stop: 03/12/19 07:21 - Exam Quality Assessment: Supplemental Oxygen General: Alert Lungs: Normal Respiratory Effort Cardiovascular: Regular Rate, Regular Rhythm GI/Abdominal Exam: Soft, No Distention, Tender (appropriate tenderness to palpation) Extremities: Normal Inspection Skin: Warm, Dry, Intact Wound/Incisions: Dressing Dry and Intact (some blood spotting, not increasing) Neurological: No New Focal Deficit Psy/Mental Status: Alert, Normal Affect, Normal Mood Sepsis Event Note - Evaluation Sepsis Screening Result: No Definite Risk - Focused Exam Vital Signs: Vital Signs Temp Pulse Resp BP Pulse Ox Pulse Ox 03/13/19 05:00 36.3 C 63 18 102/57 L 96 03/13/19 01:43 36.7 C 63 16 109/57 L 97 03/12/19 20:06 36.7 C 70 16 107/65 95 95 Date Exam was Performed: 03/13/19 Time Exam was Performed: 06:54 - Problem List & Annotations (1) Uterine fibroid SNOMED Code(s): 40883540 Code(s): D25.9 - LEIOMYOMA OF UTERUS, UNSPECIFIED Status: Acute Current Visit: No Qualifiers: Uterine leiomyoma location: unspecified location Qualified Code(s): D25.9 - Leiomyoma of uterus, unspecified - Problem List Review Problem List Initiated/Reviewed/Updated: Yes - My Orders Last 24 Hours: My Active Orders 03/12/19 11:21 Patient Status [ADT] Routine Notify Provider Intake and Out [RC] ASDIRECTED Notify Provider Vital Signs [RC] ASDIRECTED Oxygen Therapy [RC] ASDIRECTED RT Incentive Spirometry [RC] Q2HWA Up With Assistance [RC] PER UNIT ROUTINE Up ad Dea [RC] PER UNIT ROUTINE Vital Signs [RC] PER UNIT ROUTINE Ondansetron [Zofran] 4 mg IVPUSH Q6H PRN Promethazine [Phenergan] 25 mg IM Q6H PRN Sequential Compression Device [OM.PC] Per Unit Routine Resuscitation Status Routine 03/12/19 11:22 Antiembolic Devices [RC] PER UNIT ROUTINE Intake and Output [RC] PER UNIT ROUTINE Pulse Oximetry [RC] PER UNIT ROUTINE 03/12/19 11:23 Abdominal Binder [OM.PC] Per Unit Routine 03/12/19 11:25 DVT/VTE Prophylaxis Reflex [OM.PC] Routine 03/12/19 11:26 VTE/DVT Education [RC] PER UNIT ROUTINE 03/12/19 11:28 Naloxone [Narcan] 0.04 mg IVPUSH Q3M PRN diphenhydrAMINE [Benadryl] 25 mg IVPUSH Q6H PRN 03/12/19 11:29 Communication Order [RC] PER UNIT ROUTINE Pulse Oximetry Continuous Monitoring [OM.PC] Routine 03/12/19 17:00 Gabapentin [Neurontin] 300 mg PO BID 03/12/19 21:00 Docusate Sodium [Colace] 100 mg PO BID 03/12/19 Lunch Regular Diet [DIET] 03/13/19 06:54 Acetaminophen/oxyCODONE [Percocet 325-5 MG] 1 tab PO Q4H PRN 03/13/19 07:00 Ibuprofen [Motrin] 800 mg PO Q8H 03/13/19 09:00 Patient's Own Medication [Ptom] 1 each PO QAM Topiramate [Topamax] 50 mg PO QAM - Assessment Assessment:: 38yo G0 s/p ELVA, LS, Cysto for uterine leiomyoma, heavy menstruation, and dysmenorrhea, POD#1. - Plan Plan:: D/C IV Toradol, begin scheduled po Ibuprofen. D/C Tylenol & Oxycodone, begin Percocet prn. Goals today include voiding and ambulating in halls. Hemoglobin 7.8 this morning, do not feel transfusion necessary if patient asymptomatic with ambulation. Patient agreeable to these goals for today. Plan for discharge home on POD#2 if meeting all post-op milestones.
[2019-03-13] MEDS: Ibuprofen 800 MG Tab PO SCH ×3 (07:42→23:36)
[2019-03-13] MEDS ORDERED: Omeprazole 20 MG Cap.CR PO SCH (08:15)
[2019-03-13] MEDS: Topiramate 50 MG Tab PO SCH (08:37)
[2019-03-13] MEDS: Docusate Sodium 100 MG Cap PO SCH ×2 (08:37→21:26)
[2019-03-13] MEDS: Gabapentin 300 MG Cap PO SCH ×2 (08:37→21:26)
[2019-03-13] MEDS: Pantoprazole 40 MG Tab.CR PO SCH (08:37)
[2019-03-13] MEDS: Acetaminophen/oxyCODONE 325-5 MG Tab PO PRN ×4 (08:38→21:26)
[2019-03-13] MEDS: DEXTROAMPHETAMINE PO SCH ×2 (08:41→13:01)
[2019-03-13] MEDS: AMPHETAMINE PO SCH ×2 (08:41→13:01)
--- NOTE | 2019-03-13 12:40 | PCM48HPAN ---
Post Anesthesia Note - EVALUATION WITHIN 48HRS OF ANESTHETIC Vital Signs in Normal Range: Yes Patient Participated in Evaluation: Yes Respiratory Function Stable: Yes Airway Patent: Yes Cardiovascular Function Stable: Yes Hydration Status Stable: Yes Pain Control Satisfactory: Yes Nausea and Vomiting Control Satisfactory: Yes Mental Status Recovered: Yes Vital Signs: Last Vital Signs Temp 36.6 C 03/13/19 08:20 Pulse 66 03/13/19 08:20 Resp 18 03/13/19 08:20 BP 99/55 L 03/13/19 08:20 Pulse Ox 99 03/13/19 11:20 - COMMENTS/OBSERVATIONS Free Text/Narrative:: Patient denies any anesthesia related issues. No concerns related to anesthesia at this time.
[2019-03-14] MEDS: Acetaminophen/oxyCODONE 325-5 MG Tab PO PRN ×2 (02:11→07:34)
[2019-03-14 04:47] VITALS: PULSE 63
[2019-03-14] MEDS: Ibuprofen 800 MG Tab PO SCH (06:20)
[2019-03-14] MEDS: Pantoprazole 40 MG Tab.CR PO SCH (07:35)
[2019-03-14 08:28] VITALS: BP 104/55
--- NOTE | 2019-03-14 08:42 | PCM.PN ---
- General Info Date of Service: 03/14/19 Admission Dx/Problem (Free Text): Patient doing well. Complains of shoulder and neck soreness, feet swelling. Ambulating without dizziness. Voiding spontaneously, has had a bowel movement. Functional Status: Reports: Pain Controlled, Tolerating Diet, Ambulating, Urinating - Review of Systems General: Reports: No Symptoms HEENT: Reports: No Symptoms Pulmonary: Reports: No Symptoms Cardiovascular: Reports: No Symptoms Gastrointestinal: Reports: Nausea Genitourinary: Reports: No Symptoms Musculoskeletal: Reports: Shoulder Pain Skin: Reports: No Symptoms Neurological: Reports: No Symptoms Psychiatric: Reports: No Symptoms - Patient Data Vitals - Most Recent: Last Vital Signs Temp 36.1 C 03/14/19 04:47 Pulse 63 03/14/19 07:30 Resp 16 03/14/19 07:30 BP 104/55 L 03/14/19 07:30 Pulse Ox 99 03/14/19 07:30 Weight - Most Recent: 104.326 kg Med Orders - Current: Current Medications Atropine Sulfate (Atropine 0.1 Mg/Ml) 0.5 mg IVPUSH ASDIRECTED PRN PRN Reason: Hypo-perfusion Atropine Sulfate (Atropine 0.1 Mg/Ml) 1 mg IVPUSH ASDIRECTED PRN PRN Reason: Hypo-Perfusion Dextrose/Water (Dextrose 50% In Water) 50 ml IVPUSH ASDIRECTED PRN PRN Reason: Hypoglycemia Diphenhydramine HCl (Benadryl) 25 mg IVPUSH Q6H PRN PRN Reason: Itching Last Admin: 03/12/19 13:35 Dose: 25 mg Docusate Sodium (Colace) 100 mg PO BID [facility] Last Admin: 03/13/19 21:26 Dose: 100 mg Epinephrine HCl (Epinephrine 1:10,000) 1 mg IVPUSH ASDIRECTED PRN PRN Reason: ACLS Guidelines Gabapentin (Neurontin) 300 mg PO BID [facility] Last Admin: 03/13/19 21:26 Dose: 300 mg Ibuprofen (Motrin) 800 mg PO Q8H [facility] Last Admin: 03/14/19 06:20 Dose: 800 mg Naloxone HCl (Narcan) 0.1 mg IVPUSH ASDIRECTED PRN PRN Reason: Respiratory Depression Naloxone HCl (Narcan) 0.04 mg IVPUSH Q3M PRN PRN Reason: Respiratory Depression Ondansetron HCl (Zofran) 4 mg IVPUSH Q6H PRN PRN Reason: Nausea/Vomiting Oxycodone/Acetaminophen (Percocet 325-5 Mg) 1 tab PO Q4H PRN PRN Reason: Pain (moderate 4-6) Last Admin: 03/14/19 07:34 Dose: 1 tab Pantoprazole Sodium (Protonix) 40 mg PO ACBREAKFAST [facility] Last Admin: 03/14/19 07:35 Dose: 40 mg Amphetamine/Dextroamphetamine 30 Mg 1 each PO QAM [facility] Last Admin: 03/13/19 13:01 Dose: 1 each Promethazine HCl (Phenergan) 25 mg IM Q6H PRN PRN Reason: Nausea/Vomiting Scopolamine (Transderm-Scop) 1.5 mg TRDERM Q72H PRN PRN Reason: Nausea/Vomiting Last Admin: 03/12/19 07:52 Dose: 1.5 mg [facility]iramate ([facility]amax) [facility] [place] Last Admin: 03/13/19 08:37 Dose: 50 mg Discontinued Medications Acetaminophen (Tylenol) 1,000 mg PO Q6H [facility] Last Admin: 03/12/19 14:39 Dose: Not Given Acetaminophen (Tylenol Extra Strength) 1,000 mg PO Q6H [facility] [place] Last Admin: 03/13/19 08:14 Dose: Not Given Bupivacaine HCl (Marcaine 0.5%) Confirm Administered Dose 30 ml .ROUTE .STK-MED ONE Stop: 03/12/19 10:37 Cefazolin Sodium/Dextrose (Ancef) Confirm Administered Dose 2 gm IV .STK-MED ONE Stop: 03/12/19 07:54 Dexamethasone (Dexamethasone) Confirm Administered Dose 20 mg .ROUTE .STK-MED ONE Stop: 03/12/19 07:21 Diphenhydramine HCl (Benadryl) 25 mg PO Q6H PRN PRN Reason: Itching Fentanyl (Sublimaze) Confirm Administered Dose 100 mcg .ROUTE .STK-MED ONE Stop: 03/12/19 07:21 Fluorescein Sodium (Ak-Fluor) Confirm Administered Dose 5 ml .ROUTE .STK-MED ONE Stop: 03/12/19 07:27 Furosemide (Lasix) Confirm Administered Dose 40 mg .ROUTE .STK-MED ONE Stop: 03/12/19 10:51 Glycopyrrolate (Robinul) Confirm Administered Dose 0.4 mg .ROUTE .STK-MED ONE Stop: 03/12/19 10:36 Hydromorphone HCl (Dilaudid) Confirm Administered Dose 2 mg .ROUTE .ST-MED ONE Stop: 03/12/19 08:19 Hydromorphone HCl (Dilaudid) 0.5 mg IVPUSH .Q5MIN PRN PRN Reason: Pain (severe 7-10) Stop: 03/13/19 10:10 Last Admin: 03/12/19 11:37 Dose: 0.5 mg Hydromorphone HCl (Dilaudid Assistant General Manager 6 Mg In Ns 30 Ml) 6 mg IV ASDIRECTED PRN; Protocol PRN Reason: Abdominal Pain Hydromorphone HCl (Dilaudid) 2 mg IVPUSH ONETIME ONE Stop: 03/12/19 11:39 Last Admin: 03/12/19 11:51 Dose: 2 mg Hydromorphone HCl (Dilaudid) 0.5 mg IVPUSH Q3H PRN PRN Reason: Abdominal Pain Lactated Ringer's (Ringers, Lactated) 1,000 mls @ 100 mls/hr IV ASDIRECTED [facility] Stop: 03/13/19 05:00 Last Admin: 03/13/19 00:28 Dose: 100 mls/hr Acetaminophen (Ofirmev) Confirm Administered Dose 100 mls @ as directed .ROUTE .ST-MED ONE Stop: 03/12/19 07:24 Cefazolin Sodium/Dextrose (Ancef) Confirm Administered Dose 50 mls @ as directed .ROUTE .ST-MED ONE Stop: 03/12/19 08:30 Ketorolac Tromethamine (Toradol) Confirm Administered Dose 30 mg .ROUTE .STK- MED ONE Stop: 03/12/19 10:38 Ketorolac Tromethamine (Toradol) 30 mg IVPUSH ONETIME ONE Stop: 03/12/19 11:22 Last Admin: 03/12/19 14:29 Dose: Not Given Ketorolac Tromethamine (Toradol) 30 mg IVPUSH Q6H PRN PRN Reason: Pain (severe 7-10) Stop: 03/13/19 11:21 Last Admin: 03/13/19 05:52 Dose: 30 mg Lidocaine (Xylocaine-Mpf 2%) Confirm Administered Dose 5 ml .ROUTE .[facility] ONE Stop: 03/12/19 07:21 Methylene Blue (Provayblue) Confirm Administered Dose 50 mg .ROUTE .[facility] ONE Stop: 03/12/19 09:33 Methylene Blue (Provayblue) Confirm Administered Dose 50 mg .ROUTE .[facility] ONE Stop: 03/12/19 10:03 Midazolam HCl (Versed 1 Mg/Ml) Confirm Administered Dose 2 mg .ROUTE .[facility] ONE Stop: 03/12/19 07:21 Neostigmine Methylsulfate (Neostigmine) Confirm Administered Dose 5 mg .ROUTE .[facility] ONE Stop: 03/12/19 10:36 Octyl Cyanoacrylate (Dermabond Advance) Confirm Administered Dose 1 applic .ROUTE .[facility] ONE Stop: 03/12/19 07:24 Omeprazole (Omeprazole) 40 mg PO ACBREAKFAST [facility] Last Admin: 03/13/19 09:08 Dose: Not Given Ondansetron HCl (Zofran) Confirm Administered Dose 4 mg .ROUTE .[facility] ONE Stop: 03/12/19 07:21 Oxycodone HCl (Oxycodone) 5 mg PO Q4H PRN PRN Reason: Abdominal Pain Last Admin: 03/12/19 20:31 Dose: 5 mg Propofol (Diprivan 20 Ml) Confirm Administered Dose 200 mg .ROUTE .[facility] ONE Stop: 03/12/19 07:21 Rocuronium [place] (Zemuron) Confirm Administered Dose 100 mg .ROUTE .[facility] ONE Stop: 03/12/19 07:21 Scopolamine (Transderm-Scop) Confirm Administered Dose 1.5 mg .ROUTE .[facility] ONE Stop: 03/12/19 07:45 Last Admin: 03/12/19 14:29 Dose: Not Given Succinylcholine Chloride (Succinylcholine Chloride) Confirm Administered Dose 200 mg .ROUTE .[facility] ONE Stop: 03/12/19 07:21 - Exam General: Alert, Oriented Neck: Supple Lungs: Clear to Auscultation, Normal Respiratory Effort Cardiovascular: Regular Rate, Regular Rhythm GI/Abdominal Exam: Soft, No Distention, Tender (appropriate tenderness to palpation) Extremities: Non-Tender, Pedal Edema (trace) Skin: Warm, Dry, Intact Wound/Incisions: Dressing Dry and Intact Neurological: No New Focal Deficit Psy/Mental Status: Alert, Normal Affect, Normal Mood Sepsis Event Note - Evaluation Sepsis Screening Result: No Definite Risk - Focused Exam Vital Signs: Vital Signs Temp Pulse Resp BP Pulse Ox 03/14/19 07:30 63 16 104/55 L 99 03/14/19 04:47 36.1 C 63 16 94/54 L 93 L 03/14/19 02:15 36.1 C 53 L 16 99/50 L 95 Date Exam was Performed: 03/14/19 Time Exam was Performed: 08:40 - Problem List & Annotations (1) Uterine fibroid SNOMED Code(s): 33013950 Code(s): D25.9 - LEIOMYOMA OF UTERUS, UNSPECIFIED Status: Acute Current Visit: No Qualifiers: Uterine leiomyoma location: unspecified location Qualified Code(s): D25.9 - Leiomyoma of uterus, unspecified - Problem List Review Problem List Initiated/Reviewed/Updated: Yes - My Orders Last 24 Hours: My Active Orders 03/13/19 09:00 Patient's Own Medication [Ptom] 1 each PO QAM Topiramate [Topamax] 50 mg PO QAM 03/14/19 08:40 Ready for Discharge [RC] PER UNIT ROUTINE - Assessment Assessment:: 38yo G0 s/p ELVA, LS, Cysto for uterine leiomyoma, heavy menstruation, and dysmenorrhea, POD#2. - Plan Plan:: Discharge home today. Reviewed discharge instructions with patient, all questions answered. Continue to encourage ambulation.
[2019-03-14] MEDS: Docusate Sodium 100 MG Cap PO SCH (09:01)
[2019-03-14] MEDS: Topiramate 50 MG Tab PO SCH (09:01)
[2019-03-14] MEDS: Gabapentin 300 MG Cap PO SCH (09:01)
[2019-03-14] MEDS: AMPHETAMINE PO SCH (09:02)
[2019-03-14] MEDS: DEXTROAMPHETAMINE PO SCH (09:02)
== END 2019-03-14 10:20 | disposition home or self-care (01) | DRG 519 ==
LOC: MW.OB 06:46 → UNDOADMIN 06:46 → MW.OB 06:48
PROVIDERS: ADMIT Obstetrics & Gynecology; ATTEND Obstetrics & Gynecology
PROC: 0UT90ZZ Resection of Uterus, Open Approach (ICD-10-PCS; principal; 2019-03-12)
PROC: 0UT60ZZ Resection of Left Fallopian Tube, Open Approach (ICD-10-PCS; 2019-03-12)
PROC: 0TJB8ZZ Inspection of Bladder, Via Natural or Artificial Opening Endoscopic (ICD-10-PCS; 2019-03-12)
DX: D25.9 Leiomyoma of uterus, unspecified (principal); D64.9 Anemia, unspecified; F90.9 Attention-deficit hyperactivity disorder, unspecified type; E66.9 Obesity, unspecified; K21.9 Gastro-esophageal reflux disease without esophagitis; Z88.1 Allergy status to other antibiotic agents; Z79.899 Other long term (current) drug therapy; Z90.49 Acquired absence of other specified parts of digestive tract; Z90.89 Acquired absence of other organs; Z68.41 Body mass index [BMI] 40.0-44.9, adult
CPT/HCPCS: 00840; 36415; 80048; 84703; 85025; 85027; 86850; 86900; 86901; 88309; A9270-GY; J0131; J0330; J0690; J1100; J1170; J1200; J1885; J1940; J2001; J2250; J2405; J2704; J3010; J3490; J7120